=== PATIENT | female | born 1970 | race African-American/Black ===

== ENCOUNTER 2019-06-29 08:00 | Observation (INO) | payer SELFPAY ==
[2019-06-29] MEDS ORDERED: PROMETHAZINE HCL 25 MG in 0.9 % SODIUM CHLORIDE 50 ML IV ONE (08:12)
[2019-06-29] MEDS ORDERED: THIAMINE HCL 100 MG, MULTIVIT INFUSN,ADULT 1,VIT K 10 ML, FOLIC ACID 5 MG in 0.9 % SODI... IV ONE (08:13)
[2019-06-29] MEDS ORDERED: THIAMINE HCL 200 MG/2 ML VIAL ONE (08:14)
[2019-06-29] MEDS ORDERED: 0.9 % SODIUM CHLORIDE 1,000 ML IV ONE (08:14)
[2019-06-29] MEDS ORDERED: FOLIC ACID 5 MG/1 ML ONE (08:15)
[2019-06-29] MEDS ORDERED: MULTIVIT INFUSN,ADULT 1,VIT K 10 ML VIAL IV ONE (08:16)
--- NOTE | 2019-06-29 08:16 | ED Physician Documentation ---
Nausea/Vomiting/Diarrhea - HISTORIAN Historian: patient - HPI Chief Complaint: Nausea,Vomiting,Diarrhea Additional Information: Patient is a 48-year-old female who presents to the ER via [facility] from the hotel. Patient presents with c/o nausea, vomiting, and diarrhea. She states that she is a heroin user (oral) and ingests 4-5 grams a day. She had been clean for 7 months but relapsed and has been using for the last several months. She last used 4 days ago. They are traveling from [place] on motorcycle. Patient states that her does not know about her addiction and does not want him to know. thinks she ate something bad. Onset: hours Duration: constant Timing: sudden onset (started around 4 a.m. this morning) Context: other (heroin) Severity: moderate - Associated Symptoms Vomiting: bilious Diarrhea: watery Abdominal Pain: cramping, burning - ROS CONST: chills CVS/RESP: denies: chest pain, shortness of breath GI/: none EYES/ENT: none MS/SKIN/LYMPH: denies: joint pain NEURO/PSYCH: headache - PAST HX Past History: none Other History: other (Hep C) Surgeries/Procedures: none Immunizations: UTD Allergies/Adverse Reactions: Allergies Allergy/AdvReac Type Severity Reaction Status Date / Time No Known Allergies Allergy Unverified 06/29/19 08:22 Home Medications: Ambulatory Orders Medication Instructions Recorded NK 06/29/19 - SOCIAL HX Smoking History: greater than 1 pack/day Alcohol Use: rarely Drug Use: heroin - FAMILY HX Family History: none - VITAL SIGNS Vital Signs: Vital Signs Temp Pulse Resp BP Pulse Ox 98.5 F 60 21 163/81 100 06/29/19 08:00 06/29/19 08:00 06/29/19 08:00 06/29/19 08:00 06/29/19 08:00 - REVIEWED ASSESSMENTS Nursing Assessment Reviewed: Yes Vitals Reviewed: Yes Progress - Progress Progress: 10:00 Patient continues to have dry heaves; still not feeling well; very restless; discussed with patient admission to observation for N/V/D and withdrawl from heroin. Patient agrees. ED Results Lab/Radiology - Lab Results Lab Results: Lab Results 06/29/19 06/29/19 06/29/19 08:16 08:16 08:16 WBC 9.00 K/ul K/ul (4.00-12.00) RBC 5.01 M/ul M/ul (3.90-5.20) Hgb 10.8 g/dL L g/dL (11.5-16.0) Hct 34.4 % L % (34.5-46.5) MCV 69.0 fl L fl (80.0-100.0) MCH 21.6 pg L pg (28.0-34.0) MCHC 31.4 g/dL g/dL (30.0-36.0) RDW 19.8 % H % (11.3-14.3) Plt Count 421 K/mm3 H K/mm3 (130-400) Neut % (Auto) 77.2 % % (39.0-79.0) Lymph % (Auto) 16.6 % % (16.0-50.0) [place] % (Auto) 5.0 % % (0.0-11.0) Eos % (Auto) 0.9 % % (0.0-6.8) Baso % (Auto) 0.3 % % (0.0-1.5) Neut # (Auto) 6.9 # k/uL # k/uL (1.4-7.7) Lymph # (Auto) 1.5 # k/uL # k/uL (0.6-4.0) [place] # (Auto) 0.5 # k/uL # k/uL (0.0-0.9) Eos # (Auto) 0.1 # k/uL # k/uL (0.0-0.6) Baso # (Auto) 0.0 # k/uL # k/uL (0.0-0.5) Seg Neutrophils % 78 % % (39-79) Lymphocytes % 18 % % (16-50) Monocytes % 4 % % (0-11) Polychromasia 1+ H (NEGATIVE) Hypochromasia 2+ H (NEGATIVE) Anisocytosis 2+ H (NEGATIVE) Microcytosis 2+ H (NEGATIVE) RBC Morph Comment Abnormal H (NORMAL) Sodium 142 mmol/L mmol/L (137-145) Potassium 3.5 mmol/L mmol/L (3.5-5.1) Chloride 106 mmol/L mmol/L (98-107) Carbon Dioxide 21 mmol/L L mmol/L (22-30) Anion Gap 18.5 BUN 11 mg/dL mg/dL (7-17) Creatinine 0.53 mg/dL mg/dL (0.52-1.04) Estimated Creat Clear 245 Est GFR ( Amer) > 60 (60 - ) Est GFR (Non-Af Amer) > 60 (60 - ) Glucose 144 mg/dL H mg/dL (74-106) Calcium 10.0 mg/dL mg/dL (8.4-10.2) Total Bilirubin 0.9 mg/dL mg/dL (0.2-1.3) AST 100 U/L H U/L (15-46) ALT 46 U/L U/L (13-69) Alkaline Phosphatase 93 U/L U/L (38-126) Total Protein 9.7 g/dL H g/dL (6.3-8.2) Albumin 4.7 g/dL g/dL (3.5-5.0) Amylase 107 U/L U/L (30-110) Lipase 48 U/L U/L (23-300) - Orders Orders: ED Orders Category Date Time Status Place IV Lock 1T Care 06/29/19 08:12 Active AMYLASE Routine Lab 06/29/19 08:16 Completed CBC/PLATELET/DIFF Stat Lab 06/29/19 08:16 Completed CMP Routine Lab 06/29/19 08:16 Completed LIPASE Stat Lab 06/29/19 08:16 Completed 0.9 % Sodium Chloride [Normal Saline] 1,000 ml Med 06/29/19 08:14 Discontinued IV .STK-MED Famotidine/Pf [Pepcid] Med 06/29/19 09:39 Discontinued 20 mg IV NOW ONE Folic Acid [Folvite] Med 06/29/19 08:15 Discontinued 5 mg .ROUTE .STK-MED ONE LORazepam [Ativan] Med 06/29/19 09:41 Discontinued 1 mg IV NOW ONE Multivit Infusn,Adult 1,Vit K [M.v.i. Adult] Med 06/29/19 08:16 Discontinued 10 ml IV .STK-MED ONE Promethazine HCl [Phenergan] 25 mg Med 06/29/19 08:12 Discontinued 0.9 % Sodium Chloride [Normal Saline] 50 ml IV NOW Thiamine HCl [Vitamin B-1] Med 06/29/19 08:14 Discontinued 200 mg .ROUTE .STK-MED ONE Thiamine HCl [Vitamin B-1] 100 mg Med 06/29/19 08:13 Discontinued Multivit Infusn,Adult 1,Vit K [M.v.i. Adult] 10 ml Folic Acid [Folvite] 5 mg 0.9 % Sodium Chloride [Normal Saline] 1,000 ml IV NOW Nausea Physical Exam - EXAM General Appearance: moderate distress EENT: eye inspection normal, ENT inspection normal, pharynx normal, dry mucous membranes Neck: normal inspection, supple Respiratory: breath sounds normal CVS: reg rate & rhythm, heart sounds normal, equal pulses Abdomen: non-tender, tenderness Skin: warm/dry, pallor Extremities: normal range of motion Neuro/Psych: oriented X3, CN's nml as tested, motor nml, sensation nml, mood/affect nml, cognition normal Discharge Clincal Impression: Heroin abuse, Nausea & vomiting Condition: Good Decision to Admit: [id number] Decision Time: 10:45
[2019-06-29 08:28] LABS: eGFR (Non-African) > 60
[2019-06-29 08:55] LABS: BASOPHILS % 0.3 % (0.0-1.5)
[2019-06-29 08:56] LABS: ANISOCYTOSIS 2+ (NEGATIVE); HYPOCHROMASIA 2+ (NEGATIVE); NEUTROPHILS # 6.9 # k/uL (1.4-7.7); SEGMENTED NEUTROPHILS % 78 % (39-79)
[2019-06-29] MEDS ORDERED: FAMOTIDINE 20 MG/2 ML VIAL IV ONE (09:39)
[2019-06-29] MEDS ORDERED: LORazepam 2 MG/ML VIAL IV ONE (09:41)
[2019-06-29] MEDS ORDERED: LORazepam 2 MG/ML VIAL IV PRN (11:08)
[2019-06-29] MEDS ORDERED: PROMETHAZINE HCL 25 MG in 0.9 % SODIUM CHLORIDE 50 ML IV PRN (11:08)
[2019-06-29 11:40] VITALS: BMI 29.7
[2019-06-29] MEDS: POTASSIUM CHLOR 20 MEQ D51/2NS 1,000 ML IV SCH ×2 (11:53→20:20)
[2019-06-29] MEDS: ONDANSETRON HCL/PF 4 MG/ 2ML VIAL IVP PRN ×2 (14:33→23:41)
[2019-06-29] MEDS: PANTOPRAZOLE SODIUM 40 MG in SODIUM CHLORIDE 0.9 % (FLUSH) 10 ML IVP SCH (16:51)
[2019-06-29] MEDS: KETOROLAC TROMETHAMINE 30 MG/1ML VIAL IV PRN (20:20)
[2019-06-30] MEDS: KETOROLAC TROMETHAMINE 30 MG/1ML VIAL IV PRN (02:10)
[2019-06-30] MEDS: PANTOPRAZOLE SODIUM 40 MG in SODIUM CHLORIDE 0.9 % (FLUSH) 10 ML IVP SCH (05:31)
[2019-06-30] MEDS ORDERED: LEVOTHYROXINE SODIUM 50 MCG TABLET ONE (05:50)
[2019-06-30] MEDS: ONDANSETRON HCL/PF 4 MG/ 2ML VIAL IVP PRN (06:05)
[2019-06-30] MEDS ORDERED: ACETAMINOPHEN 325 MG TABLET PO PRN (06:11)
--- NOTE | 2019-06-30 06:36 | Discharge Summary ---
Discharge Summary - Discharge [facility] Admission Date: 06/29/19 Discharge Date: 06/30/19 Discharge To: Home History of Present Illness: Patient is a 48-year-old female who presents to the ER via [facility] from the hotel. Patient presents with c/o nausea, vomiting, and diarrhea. She states that she is a heroin user (oral) and ingests 4-5 grams a day. She had been clean for 7 months but relapsed and has been using for the last several months. She last used 4 days ago. They are traveling from [place] on motorcycle. Patient states that her does not know about her addiction and does not want him to know. thinks she ate something bad. Condition at Discharge: Stable Home Medications: Ambulatory Orders Medication Instructions Recorded NK 06/29/19 Consultations this Visit: None Procedures this Visit: None Allergies/Adverse Reactions: Allergies Allergy/AdvReac Type Severity Reaction Status Date / Time No Known Allergies Allergy Unverified 06/29/19 08:22 Discharge Summary: Patient is a 48 year old female that was admitted observation overnight for nausea and vomiting. She has done well through the night and rested. She had an episode of dry heaves. She feels ready to go home today- her and her are traveling back to [place] today. Hospital Course: IV fluids and IV antiemetics - Final Diagnosis (1) Heroin abuse Problems: Patient states that she is not ready to get help yet Right or Left: Right (2) Nausea & vomiting Problems: Improving-script for phenergan suppositories given Right or Left: Right
[2019-06-30 07:04] LABS: eGFR (Non-African) > 60
[2019-06-30 07:05] LABS: BASOPHILS % 0.5 % (0.0-1.5); NEUTROPHILS # 8.1 # k/uL (1.4-7.7)
[2019-06-30 13:22] VITALS: BP 167/97
== END 2019-06-30 14:15 | disposition home or self-care (01) ==
LOC: ED 08:00 → SOUTH 10:19
PROVIDERS: ADMIT Nurse Practitioner Family; ATTEND Nurse Practitioner Family
DX: F11.10 Opioid abuse, uncomplicated (principal); R11.2 Nausea with vomiting, unspecified; F17.210 Nicotine dependence, cigarettes, uncomplicated
CPT/HCPCS: 80053; 82150; 83690; 85025; 96361; 96374; 96375; 96376; 99218; 99282; 99284; J1885; J2060; J2405; J2550; J3411; J3490; G0378; J7030; J7070